=== PATIENT | female | born 1980 | race Two or more races ===

== ENCOUNTER 2020-10-22 19:49 | Emergency (ER) | payer MEDICAID | END 2020-10-22 20:23 | disposition left against medical advice (07) | LOC: ER 19:49 | DX: R53.1 Weakness (principal); Z53.21 Procedure and treatment not carried out due to patient leaving prior to being seen by health care provider ==

== ENCOUNTER 2023-03-02 11:23 | Emergency (ER) | payer MEDICAID ==
[~2023-03-02] VITALS: Ht 160 cm; Wt 88.0 kg
[2023-03-02 12:24] VITALS: BP 121/86; PULSE 91; RESP 16; TEMP 98.2; O2SAT 99
[2023-03-02] MEDS ORDERED: ACETAMINOPHEN 500 MG TAB PO ONE (12:45)
[2023-03-02] MEDS ORDERED: KETOROLAC TROMETH 60MG/2ML VIAL IM ONE (13:30)
[2023-03-02] MEDS ORDERED: ACET-1080 PO (14:12)
== END 2023-03-02 14:34 | disposition home or self-care (01) ==
LOC: ER 11:23
DX: S09.8XXA Other specified injuries of head, initial encounter (principal); R10.2 Pelvic and perineal pain; F41.9 Anxiety disorder, unspecified; W18.09XA Striking against other object with subsequent fall, initial encounter; Y93.89 Activity, other specified; Y92.89 Other specified places as the place of occurrence of the external cause; Y99.8 Other external cause status
CPT/HCPCS: 36415; 70450; 84702